=== PATIENT | female | born 1950 | race Caucasian/White ===

== ENCOUNTER → 2018-06-12 | Outpatient (CLI) | payer OTHER, MEDICAID | END | disposition home or self-care (01) | LOC: PCVCCLINIC 14:37 | PROVIDERS: ATTEND Internal Medicine | DX: R07.89 Other chest pain (principal); R94.31 Abnormal electrocardiogram [ECG] [EKG]; I10 Essential (primary) hypertension; E78.5 Hyperlipidemia, unspecified; J45.20 Mild intermittent asthma, uncomplicated; J45.909 Unspecified asthma, uncomplicated | CPT/HCPCS: 36415; 80061; 93005; G0463 ==

== ENCOUNTER → 2018-10-29 | Outpatient (CLI) | payer OTHER, MEDICAID | END | disposition home or self-care (01) | LOC: PCVCCLINIC 14:33 | PROVIDERS: ATTEND Internal Medicine | DX: E78.5 Hyperlipidemia, unspecified (principal); R07.9 Chest pain, unspecified; I10 Essential (primary) hypertension; M79.7 Fibromyalgia; Z88.8 Allergy status to other drugs, medicaments and biological substances; Z79.82 Long term (current) use of aspirin; Z79.899 Other long term (current) drug therapy | CPT/HCPCS: G0463 ==

== ENCOUNTER → 2018-12-05 | Outpatient (CLI) | payer OTHER, MEDICAID ==
[~2018-12-05] VITALS: Ht 162.6 cm; Wt 108.9 kg
[2018-12-05] VITALS (9 sets, daily range): BP systolic 120–158; BP diastolic 62–89
[~2018-12-05] MED LIST: 0.9 % SODIUM CHLORIDE 10 ML DISP.SYRIN. IV PRN; ACETAMINOPHEN 325 MG TABLET. PO PRN; ALBU2.5V8 IH; ASPI81TA50 PO; ATEN25TA PO; CONTRAST GIVEN. MC PRN; CYCL10TA2 PO; IODIXANOL 320 MG/ML 100 ML VIAL. IART ONE; IODIXANOL 320 MG/ML 100 ML VIAL. ONE; ISOS60TA2 PO; IV NORMAL SALINE 1000ML BAG 1,000 ML IV SCH; LIDOCAINE 1% Multi-Dose 20 ML VIAL. INJ ONE; LIDOCAINE 1% Multi-Dose 20 ML VIAL. ONE; MIDAZOLAM HCL/PF 2 MG/2 ML VIAL. IV ONE; MIDAZOLAM HCL/PF 2 MG/2 ML VIAL. ONE; NITR0.4T SL; TRAM50TA PO; fentaNYL PF VIAL 100 MCG/2 ML VIAL ONE
[2018-12-05 07:48] LABS: HEMATOCRIT 41.2 % (36.0-47.0); HEMOGLOBIN 13.7 g/dL (12.0-15.5); RED BLOOD COUNT 4.46 x10^6/uL (3.50-5.40); RED CELL DISTRIBUTION WIDTH 14.3 % (11.5-14.5)
[2018-12-05 07:54] LABS: CALCIUM 8.6 mg/dL (8.5-10.1); CREATININE 0.8 mg/dL (0.6-1.0); GFR 71.1; POTASSIUM 3.7 mmol/L (3.5-5.1)
[2018-12-05 08:08] LABS: PROTHROMBIN TIME PATIENT 12.3 SEC (11.7-14.0)
--- NOTE | 2018-12-06 13:07 | CARD ---
MR#: [id number] Date of Study: 12/05/2018 Ordering Physician: NATANAEL BLACK, Referring Physician: NATANAEL BLACK, Tech: ARPIT COSTA RTR APPROVED REPORT Technologist: ARPIT COSTA RTR Nurse: Lauren Jc R.N. Procedure(s) performed: MODERATE SEDATION TIME: 26 MINS FLUORO TIME:1.6 MIN Left heart catheterization, selective Left and right coronary angiography, measurement of LVEDP, supe rvision of conscious sedation DOSE:62.7 GYCM2 CONTRAST: 55 HISTORY The patient is a 68 year-old female with a history of : peripheral vascular disease, dyslipidemia. INDICATION The indication(s) include : positive stress test, dyspnea. CS Clinical Frailty Scale [facility] Clinical Frailty Scale: Managing Well Heart Failure Heart Failure: No CASE TECHNIQUE The patient was brought electively into the cardiac catheterization lab. A timeout was performed conf irming the patient's name, date of , procedure, and site of procedure. All necessary parties wer e wearing the appropriate personal protective equipment and radiation monitoring devices. After expla ining the risks and benefits of the procedure, informed consent was obtained.(See nursing notes for m edications administered). The right groin was sterilely prepped and draped. The right femoral groin w as infiltrated with 1% Lidocaine subcutaneous anesthesia. During this case, Fluoroscopy and Iso-osmol ar contrast were used for imaging. A 5 egyptian sheath was inserted into the right femoral artery witho ut difficulty. Coronary angiography was performed using coronary diagnostic catheters. The left coron aracelis system was accessed and visualized with a Diagnostic catheter. The right coronary system was acce ssed and visualized with a Diagnostic catheter. Left ventricular/Aortic Valve gradient assessed on pu llback. Coronary Angiography The patient's coronary anatomy is right dominant. The left main coronary artery is a medium size vessel without significant stenosis. The left anterior descending artery is a medium size vessel with intimal irregularities and without s ignificant stenosis. The first diagonal branch is a small size vessel without significant stenosis. The circumflex artery is a medium size vessel with intimal irregularities. The first obtuse marginal branch is a medium size vessel without significant stenosis. The right coronary artery is a medium size vessel with intimal irregularities. The right posterior de scending artery is a diminuitive size vessel without significant stenosis. Conclusion 1. Minimal CAD with rapidly tapering LAD and distal RCA 2. Normal hemodynamics Recommendations Cardiac Risk Reduction Program Medical Therapy Signed by : Natanael Black, Electronically Approved : 12/05/2018 10:17:01
== END ==
LOC: CCL 07:23
PROVIDERS: ATTEND Internal Medicine
DX: I25.10 Atherosclerotic heart disease of native coronary artery without angina pectoris (principal); Z79.01 Long term (current) use of anticoagulants
CPT/HCPCS: 36415; 80048; 85027; 85610; 93458; 99152; 99153; C1760; C1769; C1892; J1644; J2250; Q9967; G0269; C1771

== ENCOUNTER → 2019-01-07 | Outpatient (CLI) | payer OTHER, MEDICAID ==
[2018-12-05 11:48] VITALS: BP 137/65
[~2019-01-07] MED LIST changes: -0.9 % SODIUM CHLORIDE 10 ML DISP.SYRIN. IV PRN; -ACETAMINOPHEN 325 MG TABLET. PO PRN; -ALBU2.5V8 IH; -CONTRAST GIVEN. MC PRN; -IODIXANOL 320 MG/ML 100 ML VIAL. IART ONE; -IODIXANOL 320 MG/ML 100 ML VIAL. ONE; -IV NORMAL SALINE 1000ML BAG 1,000 ML IV SCH; -LIDOCAINE 1% Multi-Dose 20 ML VIAL. INJ ONE; -LIDOCAINE 1% Multi-Dose 20 ML VIAL. ONE; -MIDAZOLAM HCL/PF 2 MG/2 ML VIAL. IV ONE; -MIDAZOLAM HCL/PF 2 MG/2 ML VIAL. ONE; -NITR0.4T SL; +NITR0.4T24 SL; +PROVENTIL HFA6.7 GM IH; -fentaNYL PF VIAL 100 MCG/2 ML VIAL ONE
== END | disposition home or self-care (01) ==
LOC: PCVCCLINIC 13:00
PROVIDERS: ATTEND Internal Medicine
DX: I10 Essential (primary) hypertension (principal); E78.5 Hyperlipidemia, unspecified; R00.2 Palpitations; J45.909 Unspecified asthma, uncomplicated; Z79.82 Long term (current) use of aspirin
CPT/HCPCS: 93005; G0463